=== PATIENT | male | born 1960 | race Caucasian/White ===

== ENCOUNTER 2023-08-27 09:17 | Outpatient (CLI) | payer OTHER, SELFPAY | END 2023-08-27 09:18 | disposition home or self-care (01) | PROVIDERS: PCP Family Medicine; Visit Provider Family Medicine | DX: I10 Essential (primary) hypertension (principal); Z13.6 Encounter for screening for cardiovascular disorders | CPT/HCPCS: 80053; 80061; 82043; 82570 ==

== ENCOUNTER 2025-01-06 14:31 | Outpatient (CLI) | payer BC, SELFPAY | END 2025-01-06 14:32 | disposition home or self-care (01) | LOC: NFLDREF 01-11 03:03 | PROVIDERS: PCP Physician Assistant Medical; Referring Provider Physician Assistant Medical; Visit Provider Physician Assistant Medical | DX: I10 Essential (primary) hypertension (principal); Z13.220 Encounter for screening for lipoid disorders; Z13.29 Encounter for screening for other suspected endocrine disorder; Z12.5 Encounter for screening for malignant neoplasm of prostate | CPT/HCPCS: 80053; 80061; 84443; G0103 ==